=== PATIENT | female | born 1990 | race Two or more races ===

== ENCOUNTER 2022-06-01 11:54 | Outpatient (REF) | payer MEDICAID, SELFPAY ==
[2022-06-01 14:18] LABS: MANUAL DIFF FLAG NO
[2022-06-01 14:31] LABS: Basophils Absolute Auto 0.1 X10*3/uL (0.0-0.2); Eosinophils Absolute Auto 0.1 X10*3/uL (0.0-0.4); Eosinophils Percent Auto 1.6 % (0-4); Hemoglobin 12.4 g/dl (12.0-16.0); Imm Gran Abs Auto 0.02 X10*3/uL (0.00-0.03); Imm Gran Pct Auto 0.3 % (0.0-0.4); Lymphocytes Absolute Auto 1.8 X10*3/uL (1.2-4.9); Lymphocytes Percent Auto 26.1 % (20-40); Mean Corpuscular HGB Conc 31.8 g/dl (31.0-35.0); Mean Corpuscular Hemoglobin 26.4 pg (27.0-33.0); Mean Platelet Volume 10.5 fL (9.4-12.3); Monocytes Absolute Auto 0.5 X10*3/uL (0.1-1.2); Monocytes Percent Auto 7.3 % (2-11); Neutrophils Absolute Auto 4.4 x10*3/uL (2.0-8.3); Neutrophils Percent Auto 63.7 % (45-73); Platelet Count 322 X10*3/uL (160-400); Red Cell Distribution Width 14.4 % (11.0-16.0); White Blood Count 6.8 X10*3/uL (4.8-10.8)
[2022-06-01 15:04] LABS: Thyroid Stimulating Hormone 1.62 uIU/mL (0.32-4.0)
== END 2022-06-01 11:55 | disposition home or self-care (01) ==
LOC: HO.10HDL 11:54
PROVIDERS: Visit Provider Internal Medicine
DX: F32.2 Major depressive disorder, single episode, severe without psychotic features (principal); G47.00 Insomnia, unspecified; R41.840 Attention and concentration deficit
CPT/HCPCS: 36415; 84443; 85025

== ENCOUNTER 2023-12-05 14:39 | Outpatient (REF) | payer MEDICAID, SELFPAY ==
[2023-12-05 16:01] LABS: Alanine Aminotransferase 15 U/L (0-31); Albumin Level 4.5 g/dL (3.5-5.0); Alkaline Phosphatase 66 U/L (39-117); Anion Gap 12 (12-20); Aspartate Amino Transferase 16 U/L (5-31); Bilirubin Total 0.3 mg/dL (0.0-1.0); Blood Urea Nitrogen 8 mg/dL (9-16); Calcium 9.7 mg/dL (8.4-10.2); Carbon Dioxide 26 mmol/L (22-29); Chloride 105 mmol/L (96-108); Estimated Glomerular Filt Rate > 60; Glucose Random 89 mg/dL (60-115); Potassium 3.9 mmol/L (3.3-5.1); Sodium 139 mmol/L (135-145); Total Protein 7.7 g/dL (6.5-8.0)
[2023-12-12 11:49] LABS: Testosterone, Free 4.3 pg/mL (0.1-6.4); Testosterone, Total 32 ng/dL (2-45)
== END 2023-12-05 14:40 | disposition home or self-care (01) ==
LOC: HO.LAB 14:39
PROVIDERS: PCP Internal Medicine; Visit Provider Internal Medicine
DX: Z00.00 Encounter for general adult medical examination without abnormal findings (principal); B35.1 Tinea unguium; F32.9 Major depressive disorder, single episode, unspecified; F90.0 Attention-deficit hyperactivity disorder, predominantly inattentive type; L68.8 Other hypertrichosis
CPT/HCPCS: 36415; 80053; 83498; 84402; 84403

== ENCOUNTER 2024-02-28 11:32 | Outpatient (REF) | payer MEDICAID, SELFPAY ==
--- NOTE | ~2024-02-28 | XR_ITS ---
EXAMINATION: XR FOOT, LEFT CLINICAL INFORMATION: Pain in left foot, rule out fractures, pain on top of foot . COMPARISON: None available. TECHNIQUE: AP, lateral, and oblique views of the left foot. FINDINGS: Radiopaque marker placed by technologist to indicate the area of concern as indicated by the patient along the dorsal aspect of the tarsometatarsal joints. Bone mineralization is normal. Mild degenerative changes in the first metatarsophalangeal joint. No displaced fracture appreciated. Alignment maintained. XR/XR foot LT min 3V IMPRESSION: Mild degenerative changes in the first metatarsophalangeal joint. No displaced fracture appreciated. Recommend follow-up imaging in 10-14 days if fracture is suspected
== END 2024-02-28 11:33 | disposition home or self-care (01) ==
LOC: HO.XRAY 11:32
PROVIDERS: PCP Internal Medicine; Visit Provider Internal Medicine
DX: M79.672 Pain in left foot (principal)
CPT/HCPCS: 73630

== ENCOUNTER 2025-04-21 15:06 | Outpatient (REF) | payer MEDICAID, SELFPAY ==
[2025-04-21 17:59] LABS: CT PCR Urine NOT DETECTED (Not Detect.); NG PCR Urine NOT DETECTED (Not Detect.)
== END 2025-04-21 15:07 | disposition home or self-care (01) ==
LOC: HO.LAB 15:06
PROVIDERS: PCP Internal Medicine; Visit Provider Internal Medicine
DX: N30.00 Acute cystitis without hematuria (principal)
CPT/HCPCS: 36415; 87086; 87491; 87591

== ENCOUNTER 2025-07-14 09:43 | Outpatient (REF) | payer MEDICAID, SELFPAY | END 2025-07-14 09:44 | disposition home or self-care (01) | LOC: HO.LAB 09:43 | PROVIDERS: PCP Internal Medicine; Visit Provider Urology | DX: N39.0 Urinary tract infection, site not specified (principal); A49.9 Bacterial infection, unspecified; Z13.89 Encounter for screening for other disorder | CPT/HCPCS: 81003; 87086; 99202 ==

== ENCOUNTER 2025-07-14 09:43 | Outpatient (AMB) | payer MEDICAID, SELFPAY ==
--- NOTE | 2025-07-14 09:51 | MHC.OFFVIS ---
Intake Visit Reasons: Recurrent UTI Intake Note: patient presents today for: new pt recurrent UTI urology medications: none blood thinners: none Collection Correspondent Required: No Accompanied by: Self / Same As Patient Allergies No Known Allergies (No Known Allergies*) Allergy (Unverified 07/14/25 09:52) HPI Comments Details: Cece is a pleasant female. She is a patient of Dr. Church. She is seen for the following urologic conditions - recurrent UTI UA in office today 3+ leuks Plan culture Denies relationship to cycle or intercourse Occasional constipation Has urgency frequency with dysuria when has infection Last culture March less than 10,000 non speciated Staff vitamin-C and methenamine Ultrasound Three-month follow-up Review of Systems Const Denies chills and Denies fever(s) Card Reports no additional complaints and Denies syncope Resp Denies cough GI Denies abdominal pain and Denies heartburn Reports as per HPI and Denies change in libido Neuro Denies syncope Psych Denies change in libido Endo Denies change in libido Physical Exam Const General: cooperative, healthy appearing, comfortable and no acute distress Orientation/consciousness: patient oriented x3 HEENT Face and sinus: Yes normal facial exam Mouth: moist mucous membranes Neck Neck: Yes normal visual inspection, Yes full ROM and Yes trachea midline Chest Chest palpation & inspection: normal inspection of the chest Resp Effort & Inspection: normal respiratory effort, able to speak in complete sentences and no respiratory distress GI Inspection: Yes normal to inspection Back/Spine/Pelvis Cervical Spine: normal cervical lordosis Thoracic/Lumbar Spine: thoracic and lumbar spine normal to inspection Skin General skin exam: no rashes or lesions noted Neuro General: patient oriented x3, gait normal, tone normal and moves all extremities Extrem General: Yes normal to inspection and Yes capillary refill normal Assessment & Plan Assessment & Plan (1) Recurrent UTI: Code(s): N39.0 - Urinary tract infection, site not specified Category: Medical Plan Methenamine and vitamin-C Orders: Orders US retroperitoneal comp Today N39.0 - Urinary tract infection, site not specified Medications: New ascorbic acid (vitamin C) 1,000 mg PO DAILY 90 tabs 1RF 90 days N39.0 - Urinary tract infection, site not specified methenamine hippurate 1 g PO DAILY 90 tabs 1RF 90 days N39.0 - Urinary tract infection, site not specified Patient Instructions: This note is constructed using voice recognition software. While every effort has been made to ensure accuracy director of accounts payable errors may have been included. Imaging studies, laboratory and physical exam results were discussed and reviewed in detail. No major barriers to patient understanding were identified. An opportunity to ask questions regarding the treatment plan was provided. All questions were answered. The patient expressed understanding and agreement with the above treatment plan. The patient is aware they should contact our office by phone for worsening of their current condition or the appearance of new urologic symptoms. Compliance is encouraged with any medications and followup testing that is ordered. It is a privilege to participate in the urologic care of your patient. If you have any questions or concerns regarding treatment for the above conditions, or other urologic issues, please do not hesitate to contact me. The office telephone contact is [phone]. Sincerely, Dr Costa Cortes MD, [facility] - Urology Compassionate Specialist Care for the Genitourinary System Coding Level of Care Code New Pt Level 4 (83695) Diagnoses Recurrent UTI N39.0
== END 2025-07-14 10:39 | disposition home or self-care (01) ==
LOC: HO.HUSH 09:44
PROVIDERS: PCP Internal Medicine; Visit Provider Urology
DX: N39.0 Urinary tract infection, site not specified (principal); Z13.9 Encounter for screening, unspecified
CPT/HCPCS: 99204